=== PATIENT | female | born 1960 | race Caucasian/White ===

== ENCOUNTER 2017-10-27 09:48 | Outpatient (CLI) | payer OTHER | END 2017-10-27 09:49 | disposition home or self-care (01) | LOC: CTENTCT 09:48 | PROVIDERS: ATTEND Otolaryngology Plastic Surgery within the Head & Neck | DX: J32.9 Chronic sinusitis, unspecified (principal) | CPT/HCPCS: 70486 ==

== ENCOUNTER 2019-03-16 10:37 | Day surgery (SDC) | payer OTHER ==
[2019-03-15 12:50] VITALS: BMI 40.7
--- NOTE | 2019-03-16 13:40 | OP ---
DATE OF PROCEDURE: 03/16/2019 PROCEDURES PERFORMED: Colonoscopy with snare polypectomy. PREMEDICATION: Given by Anesthesiology Department. PREPROCEDURE DIAGNOSIS: Colon screening. POSTPROCEDURE DIAGNOSES: 1. Rectosigmoid polyp, 8 mm. 2. Normal colon exam otherwise. DESCRIPTION OF PROCEDURE: Written consents were obtained prior to procedure. After adequate sedation, rectal exam performed was normal. The endoscope was advanced to the cecum without difficulty. The quality of the bowel prep was good. The cecum, ascending colon, hepatic flexure, transverse colon, splenic flexure, descending colon, and sigmoid colon appeared normal. In the rectosigmoid colon, an 8 mm semipedunculated polyp was noted. The polyp was removed with hot snare with good hemostasis. The polyp was retrieved. The rectal vault appeared normal including retroflexion. The patient tolerated the procedure well. ASSESSMENT: 1. Rectosigmoid colon polyp, status post polypectomy. 2. Otherwise normal colon exam. RECOMMENDATION: 1. Await biopsy results. 2. Future surveillance colon exam depends on histology of the polyp. Job ID: [id number]
--- NOTE | 2019-03-16 13:45 | OP ---
DATE OF PROCEDURE: 03/16/2019 PROCEDURE PERFORMED: Esophagogastroduodenoscopy. PREMEDICATION: Given by Anesthesiology Department. PREPROCEDURE DIAGNOSIS: 1. Chronic gastroesophageal reflux. 2. Corona's screening. POSTPROCEDURE DIAGNOSES: 1. Small sliding hiatal hernia. 2. Otherwise normal upper endoscopy. DESCRIPTION OF PROCEDURE: Written consents were obtained prior to procedure. After adequate sedation, forward-viewing endoscope was advanced down the stomach under direct vision to the third portion of duodenum. The duodenum and the bulb appeared normal. The pylorus was patent. The gastric antrum, body, fundus, and cardia all appeared normal. Retroflexion showed a small 2 cm sliding-type hiatal hernia. The GE junction with regular Z-line was noted at 35 cm from the incisors. The distal, mid, and upper esophagus appeared normal. The patient tolerated the procedure well. ASSESSMENT: 1. Small 2 cm sliding hiatal hernia. 2. Otherwise normal upper endoscopy. RECOMMENDATION: 1. Antireflux measures discussed with the patient. 2. Emphasis on weight reduction. 3. Continue omeprazole 40 mg p.o. daily. Job ID: [id number]
== END 2019-03-16 13:40 | disposition home or self-care (01) ==
LOC: SDC 10:37
PROVIDERS: ATTEND Internal Medicine Gastroenterology
PROC: 0DBN8ZX Excision of Sigmoid Colon, Via Natural or Artificial Opening Endoscopic, Diagnostic (ICD-10-PCS; principal; 2019-03-16)
PROC: 0DJ08ZZ Inspection of Upper Intestinal Tract, Via Natural or Artificial Opening Endoscopic (ICD-10-PCS; principal; 2019-03-16)
DX: Z12.11 Encounter for screening for malignant neoplasm of colon (principal); D12.5 Benign neoplasm of sigmoid colon; K21.9 Gastro-esophageal reflux disease without esophagitis; K44.9 Diaphragmatic hernia without obstruction or gangrene; I10 Essential (primary) hypertension; Z91.040 Latex allergy status; Z91.048 Other nonmedicinal substance allergy status; Z79.82 Long term (current) use of aspirin; Z79.899 Other long term (current) drug therapy
CPT/HCPCS: 88305

== ENCOUNTER 2021-02-21 09:45 | Outpatient (CLI) | payer OTHER | END 2021-02-21 09:46 | disposition home or self-care (01) | LOC: SCSRAD 09:45 | PROVIDERS: ATTEND Family Medicine | DX: M25.561 Pain in right knee (principal); M17.11 Unilateral primary osteoarthritis, right knee ==